=== PATIENT | female | born 1975 | race Two or more races ===

== ENCOUNTER 2018-06-01 09:16 | Outpatient (CLI) | payer OTHER | END 2018-06-01 09:34 | disposition home or self-care (01) | LOC: RAD 501 09:16 | DX: N23 Unspecified renal colic (principal) ==

== ENCOUNTER 2023-10-10 10:45 | Inpatient (IN) | payer OTHER ==
[2023-10-22] MEDS ORDERED: METRONIDAZOLE/SODIUM CHLORIDE 500 MG/100 ML PIGGYBACK IV ONE ×2 (07:53→12:30)
[2023-10-22] MEDS ORDERED: CEFTRIAXONE SODIUM 2,000 MG VIAL ONE (07:54)
[2023-10-22] MEDS ORDERED: BUPIVACAINE HCL/PF 0.5% 30ML ML ONE (10:46)
[2023-10-22] MEDS ORDERED: POVIDONE-IODINE 118 ML BOTT TOP ONE ×2 (10:46→12:30)
[2023-10-22] MEDS ORDERED: LIDOCAINE HCL/EPINEPHRINE 20 ML VIAL IJ ONE ×2 (10:46→12:30)
[2023-10-22] MEDS ORDERED: BUPIVACAINE HCL/PF 0.5% 5MG/ML VIAL IV ONE (12:30)
[2023-10-22] MEDS ORDERED: CEFTRIAXONE SODIUM 2,000 MG VIAL IV ONE (12:30)
[2023-10-22] MEDS ORDERED: ONDANSETRON HCL 2 MG/ML VIAL IV SCH (12:42)
[2023-10-22] MEDS ORDERED: GABAPENTIN 100 MG CAPSULE PO SCH (13:00)
[2023-10-22] MEDS ORDERED: RINGERS SOLUTION,LACTATED 1,000 ML IV SCH (14:00)
[2023-10-22] MEDS ORDERED: ACETAMINOPHEN 325 MG TABLET PO SCH (14:00)
[2023-10-22] MEDS ORDERED: CEFOXITIN SODIUM 2,000 MG VIAL IV SCH (14:00)
[2023-10-22 14:57] LABS: HEMOGLOBIN 12.4 g/dL (12.0-15.00); MEAN CORPUSCULAR HEMOGLOBIN 30.2 pg (27.00-32.0); MEAN CORPUSCULAR HGB CONC 33.5 g/dl (32.0-36.0); PLATELET COUNT 217 K/uL (150-450); RED BLOOD COUNT 4.11 M/uL (4.00-6.00); RED CELL DISTRIBUTION WIDTH 13.5 % (11.5-14.5)
[2023-10-22] MEDS ORDERED: ONDANSETRON HCL 2 MG/ML VIAL ONE (16:42)
[2023-10-22] MEDS ORDERED: CEFOXITIN SODIUM 2,000 MG VIAL IV ONE (16:43)
== END 2023-10-23 12:55 | disposition home or self-care (01) | DRG 743 ==
LOC: O/R 10-22 05:13 → SURH 10-22 05:13 → SURG 10-22 10:45 → SURH 10-22 14:08 → SURG 10-22 19:15 → SURH 10-23 12:55
PROVIDERS: Surgery; ADMIT Obstetrics & Gynecology Gynecology; ATTEND Obstetrics & Gynecology Gynecology
PROC: 0UT74ZZ Resection of Bilateral Fallopian Tubes, Percutaneous Endoscopic Approach (ICD-10-PCS; 2023-10-22)
PROC: 0TTB4ZZ Resection of Bladder, Percutaneous Endoscopic Approach (ICD-10-PCS; 2023-10-22)
PROC: 0UT24ZZ Resection of Bilateral Ovaries, Percutaneous Endoscopic Approach (ICD-10-PCS; principal; 2023-10-22 19:15)
PROC: 0UT94ZZ Resection of Uterus, Percutaneous Endoscopic Approach (ICD-10-PCS; 2023-10-22 19:15)
DX: D25.2 Subserosal leiomyoma of uterus (principal); N83.02 Follicular cyst of left ovary; Z20.822 Contact with and (suspected) exposure to COVID-19